=== PATIENT | female | born 1965 | race African-American/Black ===

== ENCOUNTER 2022-12-02 09:25 | Inpatient (IN) | payer OTHER ==
[2022-12-02 10:05] VITALS: BMI 19.0
[2022-12-02] MEDS ORDERED: P-EPHED 60MG/TRIPROLIDI 2.5MG TABLET PO PRN (10:54)
[2022-12-02] MEDS ORDERED: BISMUTH SUBSALICYLATE 524 MG/30 ML PO PRN (10:54)
[2022-12-02] MEDS ORDERED: NALOXONE HCL (KLOXXADO) 8 MG SPRAY NS PRN (10:54)
[2022-12-02] MEDS ORDERED: BENZONATATE 200 MG CAPSULE PO PRN (10:54)
[2022-12-02] MEDS ORDERED: guaiFENesin 600 MG TABLET.ER (FP) PO PRN (10:54)
[2022-12-02] MEDS ORDERED: NICOTINE POLACRILEX 2 MG GUM BUC PRN (10:54)
[2022-12-02] MEDS ORDERED: MAG HYDROX/AL HYDROX/SIMETH 30 ML UNIT-DOSE CUP PO PRN (10:54)
[2022-12-02] MEDS ORDERED: NALOXONE HCL 0.4 MG/ML VIAL IM PRN (10:54)
[2022-12-02] MEDS ORDERED: DICYCLOMINE HCL 10 MG CAPSULE PO PRN (10:54)
[2022-12-02] MEDS ORDERED: LOPERAMIDE HCL 2 MG CAPSULE PO PRN (10:54)
[2022-12-02] MEDS ORDERED: IBUPROFEN 400 MG TABLET (FP) PO PRN (10:54)
[2022-12-02] MEDS ORDERED: IBUPROFEN 600 MG TABLET (FP) PO PRN (10:54)
[2022-12-02] MEDS ORDERED: BENZOCAINE/MENTHOL (CHLORASEPTIC ) LOZENGE MM PRN (10:54)
[2022-12-02] MEDS ORDERED: POLYETHYLENE GLYCOL (HEALTHYLAX) 3350 17 GM PACKET PO PRN (10:54)
[2022-12-02] MEDS ORDERED: MAGNESIUM HYDROX 2400MG/30ML ORAL SUSPENSION 30 ML CUP PO PRN (10:54)
[2022-12-02] MEDS ORDERED: ONDANSETRON *ODT* 4 MG TABLET SL PRN (10:54)
[2022-12-02] MEDS ORDERED: ACETAMINOPHEN 325 MG TABLET (FP) PO PRN (10:54)
[2022-12-02 15:45] LABS: RBC 4.16 M/mm3 (3.60-5.2)
[2022-12-02 15:48] LABS: HEMATOCRIT 38.2 % (32.4-45.2); HEMOGLOBIN 12.3 GM/dL (10.7-15.3); MCH 29.7 pg (25.7-33.7); MCHC 32.3 g/dl (32.0-36.0); MEAN CELL VOLUME 91.9 fl (80-96); MEAN PLT VOLUME 11.8 fl (7.5-11.1); PLATELET COUNT 96 10^3/uL (134-434); RDW 14.5 % (11.6-15.6); WHITE BLOOD COUNT 5.5 K/mm3 (4.0-10.0)
[2022-12-02 15:52] LABS: POTASSIUM 4.3 mmol/L (3.5-5.1)
[2022-12-02 15:53] LABS: ALBUMIN 3.7 g/dl (3.4-5.0)
[2022-12-02 15:54] LABS: CALCIUM 9.2 mg/dL (8.5-10.1)
[2022-12-02 15:57] LABS: CREATININE 0.9 mg/dL (0.55-1.3)
[2022-12-02 15:59] LABS: BILIRUBIN,TOTAL 0.3 mg/dL (0.2-1); TOT PROT 7.8 g/dl (6.4-8.2)
[2022-12-02] MEDS ORDERED: ALBUTEROL SO4 HFA INHALER IH ONE (18:48)
[2022-12-02] MEDS: THIAMINE HCL 100 MG TABLET (FP) PO SCH (22:40)
[2022-12-02] MEDS: MELATONIN 5 MG TABLETS PO SCH (22:40)
[2022-12-02] MEDS: hydrOXYzine PAMOATE 25 MG CAPSULE (FP) PO PRN (22:41)
[2022-12-02] MEDS ORDERED: ALBUTEROL SO4 HFA INHALER IH PRN (23:40)
[2022-12-03] MEDS ORDERED: methaDONE HCL 10 MG TABLET PO SCH (09:00)
[2022-12-03] MEDS: SPIRONOLACTONE 25 MG TABLET PO SCH (09:36)
[2022-12-03] MEDS: LISINOPRIL 20 MG TABLET PO SCH (09:37)
[2022-12-03] MEDS: PRENATAL VITAMINS W/ FOLIC ACID TABLET (FP) PO SCH (09:37)
[2022-12-03] MEDS: CARVEDILOL 12.5 MG TABLET (FP) PO SCH ×2 (10:56→22:20)
[2022-12-03] MEDS: MELATONIN 5 MG TABLETS PO SCH (22:20)
[2022-12-03] MEDS: THIAMINE HCL 100 MG TABLET (FP) PO SCH (22:20)
[2022-12-03] MEDS: hydrOXYzine PAMOATE 25 MG CAPSULE (FP) PO PRN (22:21)
[2022-12-04] MEDS ORDERED: methaDONE HCL 40 MG DISPERSABLE TABLET PO SCH (04:32)
[2022-12-04 06:10] VITALS: RESP 16
[2022-12-04 09:48] VITALS: BP 118/73; PULSE 62; TEMP 97.5
[2022-12-04] MEDS: SPIRONOLACTONE 25 MG TABLET PO SCH (10:12)
[2022-12-04] MEDS: CARVEDILOL 12.5 MG TABLET (FP) PO SCH (10:13)
[2022-12-04] MEDS: PRENATAL VITAMINS W/ FOLIC ACID TABLET (FP) PO SCH (10:13)
[2022-12-04] MEDS: LISINOPRIL 20 MG TABLET PO SCH (10:14)
[2022-12-04] MEDS ORDERED: PNEUMOC 20-VAL CONJ-DIP CRM/PF 0.5 ML SYRINGE IM ONE (12:00)
== END 2022-12-04 11:15 | disposition home or self-care (01) | DRG 773 ==
LOC: YASAS 09:25 → Y3N 11:32
PROVIDERS: ADMIT Allergy & Immunology; ATTEND Surgery
PROC: HZ2ZZZZ Detoxification Services for Substance Abuse Treatment (ICD-10-PCS; principal; 2022-12-02)
DX: F13.20 Sedative, hypnotic or anxiolytic dependence, uncomplicated (principal); F14.20 Cocaine dependence, uncomplicated; F11.20 Opioid dependence, uncomplicated; F17.210 Nicotine dependence, cigarettes, uncomplicated; F19.24 Other psychoactive substance dependence with psychoactive substance-induced mood disorder; F43.10 Post-traumatic stress disorder, unspecified; E78.5 Hyperlipidemia, unspecified; I10 Essential (primary) hypertension; K21.9 Gastro-esophageal reflux disease without esophagitis; Z86.79 Personal history of other diseases of the circulatory system; Z91.199 Patient's noncompliance with other medical treatment and regimen due to unspecified reason
CPT/HCPCS: 36415; 80053; 85027; 86780; 87635